=== PATIENT | male | born 1955 | race Caucasian/White ===

== ENCOUNTER → 2018-03-18 10:00 | Outpatient (CLI) | payer OTHER, SELFPAY ==
--- NOTE | 2018-03-18 10:02 | DI.CT.S_ITS ---
PROCEDURE: CT CHEST W CON INDICATIONS: 62-year-old male with asbestos exposure and pleural plaques. TECHNIQUE: After the administration of intravenous contrast, 5 mm thick sections acquired from the pulmonary apices to the posterior costophrenic angles. 7 mm thick coronal and sagittal MIP reformats were acquired. For radiation dose reduction, the following was used: automated exposure control, adjustment of mA and/or kV according to patient size. COMPARISON: [facility], CT, ABDOMEN/PELVIS WITH CONTRAST, 02/03/2018, 11:07. [facility], CR, CHEST 2 VIEW, 10/29/2010, 11:56. [facility], CR, CHEST 2 VIEW, 11/05/2009, 9:56. FINDINGS: Image quality: Excellent. Lungs and pleura: No acute air space opacities. No lung nodules or masses. No pleural effusions or pneumothorax. Bilateral pleural plaques are noted, with patchy internal calcifications. Central and peripheral airways are patent and normal in caliber. Mediastinum: Heart size is normal. No pericardial effusion. No mediastinal or hilar adenopathy by size criteria. Thoracic aorta and central pulmonary arteries are normal in size. Esophagus is normal in caliber, with a small hiatal hernia. Bones and chest wall: On sagittal reformatted images, multiple asymmetric geographic lucent lesions involve the right scapular body. Subacute incompletely healed fractures involve the lateral right fifth through eighth ribs, as well as the posterior right ninth rib. Nonacute lateral left seventh and eighth rib fractures are also present. No vertebral body compression fractures. No axillary or supraclavicular adenopathy by size criteria. Thyroid gland is normal in size. Abdomen: Visualized upper abdominal solid organs appear normal, status post cholecystectomy. Upper abdominal bowel loops are normal in caliber. IMPRESSION: 1. Bilateral partially calcified pleural plaques indicate remote asbestos exposure. No findings to suggest bronchogenic neoplasm or mesothelioma at this time. 2. Subacute incompletely healed fractures of the right fifth through ninth ribs. Nonacute healed fractures of the left seventh and eighth ribs. 3. Multiple geographic lucent lesions involve the right scapular body are of uncertain etiology, and may represent sequelae of remote scapular fracture, or atypical lytic metastases in the setting of known prostate carcinoma. Recommend correlation with PSA level, and consider whole body bone scan if there is clinical concern for osseous metastases. Dictated by: Villa Cotto M.D. on 03/18/2018 at 11:37 Approved by: Villa Cotto M.D. on 03/18/2018 at 11:50
== END ==
PROVIDERS: Family Provider Family Medicine; PCP Family Medicine; Visit Provider Family Medicine
DX: J92.0 Pleural plaque with presence of asbestos (principal); S22.41XD Multiple fractures of ribs, right side, subsequent encounter for fracture with routine healing
CPT/HCPCS: 71260; Q9967

== ENCOUNTER → 2018-06-02 09:05 | Outpatient (CLI) | payer OTHER, SELFPAY ==
[2018-06-02 10:50] LABS: Hemoglobin A1C% w Est Avg Glu 7.8 % (4.0-6.0)
[2018-06-02 11:43] LABS: Prostate Specific Antigen < 0.064 ng/mL (0.10-4.00)
== END ==
PROVIDERS: Family Provider Family Medicine; PCP Family Medicine; Visit Provider Physician Assistant
DX: C61 Malignant neoplasm of prostate (principal); E10.9 Type 1 diabetes mellitus without complications
CPT/HCPCS: 36415; 83036; 84153

== ENCOUNTER → 2018-09-01 07:50 | Outpatient (CLI) | payer OTHER, SELFPAY ==
[2018-09-01 10:30] LABS: Prostate Specific Antigen < 0.064 ng/mL (0.10-4.00)
== END ==
PROVIDERS: Family Provider Family Medicine; PCP Family Medicine; Visit Provider Student in an Organized Health Care Education/Training Program
DX: C61 Malignant neoplasm of prostate (principal)
CPT/HCPCS: 36415; 84153

== ENCOUNTER → 2018-09-15 07:29 | Outpatient (CLI) | payer OTHER, SELFPAY ==
[2018-09-15 08:38] LABS: Add Manual Diff / Slide Review NO; Basophils Percent Auto 0.4 % (0-2); Eosinophils Percent Auto 4.6 % (2-4); Hematocrit 45.4 % (41-53); Hemoglobin 15.5 g/dL (13.5-17.5); Lymphocytes Percent Auto 26.8 % (25-40); Mean Corpuscular HGB Conc 34.1 % (30-36); Mean Corpuscular Hemoglobin 29.9 PG (26-34); Mean Corpuscular Volume 87.7 fL (80-100); Monocytes Percent Auto 7.4 % (3-14); Neutrophils Absolute Auto 5200 /uL (3000-5900); Neutrophils Percent Auto 60.8 % (50-75); Platelet Count 224 X10^3/uL (150-400); Red Blood Cell Count 5.18 X10^6/uL (4.5-5.9); Red Cell Distribution Width 13.6 % (11.6-14.8); White Blood Cell Count 8.5 X10^3/uL (4.5-11.0)
[2018-09-15 08:59] LABS: Alanine Aminotransferase 43 IU/L (21-72); Albumin 4.4 g/dL (3.5-5.0); Albumin Globulin Ratio 1.5 (1.0-2.8); Alkaline Phosphatase 92 U/L (38-126); Aspartate Aminotransferase 30 IU/L (17-59); BUN Creatinine Ratio 19.2 (6-22); Bilirubin Total 0.7 mg/dL (0.2-1.3); Blood Urea Nitrogen 25 mg/dL (9-20); Calcium 9.3 mg/dL (8.4-10.2); Carbon Dioxide 24 mmol/L (22-32); Chloride 105 mmol/L (98-107); Cholesterol 139 mg/dL (140-199); Estimated Glomerular Filt Rate 55.6 mL/min (>60); Glucose 121 mg/dL (80-110); HDL Cholesterol 31 mg/dL (40-60); HEMOLYSIS < 15 (0-50); LDL Cholesterol Calculated 69 mg/dL (<100); Potassium 4.3 mmol/L (3.4-5.1); Sodium 144 mmol/L (137-145); Total Protein 7.4 g/dL (6.3-8.2); Triglycerides 193 mg/dL (35-150)
[2018-09-15 09:03] LABS: Hemoglobin A1C% w Est Avg Glu 9.2 % (4.0-6.0)
[2018-09-15 09:30] LABS: TSH w/ Reflex to FT4 2.66 uIU/mL (0.47-4.68)
[2018-09-15 10:08] LABS: Microalbumi Creatinin Ratio Ur 989.6 ug/mg CR (<30); Microalbumin Urine Random 86.1 mg/dL (0-1.6)
== END ==
PROVIDERS: PCP Family Medicine; Visit Provider Family Medicine
DX: E10.9 Type 1 diabetes mellitus without complications (principal); E78.5 Hyperlipidemia, unspecified; I10 Essential (primary) hypertension; Z00.00 Encounter for general adult medical examination without abnormal findings
CPT/HCPCS: 36415; 80053; 80061; 82043; 82570; 83036; 84443; 85025

== ENCOUNTER → 2018-11-29 09:32 | Outpatient (CLI) | payer OTHER, SELFPAY ==
[2018-11-29 11:36] LABS: Prostate Specific Antigen < 0.064 ng/mL (0.10-4.00)
== END ==
PROVIDERS: PCP Family Medicine; Visit Provider Student in an Organized Health Care Education/Training Program
DX: C61 Malignant neoplasm of prostate (principal)
CPT/HCPCS: 36415; 84153

== ENCOUNTER → 2018-12-27 09:04 | Outpatient (CLI) | payer OTHER, SELFPAY ==
[2018-12-27 10:02] LABS: Hemoglobin A1C% w Est Avg Glu 8.8 % (4.0-6.0)
[2018-12-27 10:27] LABS: Creatinine Urine Random 219.1 mg/dL
[2018-12-27 13:54] LABS: Microalbumi Creatinin Ratio Ur 1775.4 ug/mg CR (<30)
== END ==
PROVIDERS: PCP Family Medicine; Visit Provider Family Medicine
DX: E10.9 Type 1 diabetes mellitus without complications (principal); I10 Essential (primary) hypertension
CPT/HCPCS: 36415; 82043; 82570; 83036

== ENCOUNTER → 2019-03-07 09:13 | Outpatient (CLI) | payer OTHER, SELFPAY ==
[2019-03-07 11:54] LABS: Prostate Specific Antigen < 0.064 ng/mL (0.10-4.00)
== END ==
PROVIDERS: Family Provider Family Medicine; PCP Family Medicine; Visit Provider Student in an Organized Health Care Education/Training Program
DX: C61 Malignant neoplasm of prostate (principal); E10.9 Type 1 diabetes mellitus without complications
CPT/HCPCS: 36415; 84153

== ENCOUNTER → 2019-03-18 08:29 | Outpatient (CLI) | payer OTHER, SELFPAY ==
[2019-03-18 10:39] LABS: Hemoglobin A1C% w Est Avg Glu 9.8 % (4.0-6.0)
[2019-03-18 10:51] LABS: BUN Creatinine Ratio 23.3 (6-22); Blood Urea Nitrogen 28 mg/dL (9-20); Calcium 9.5 mg/dL (8.4-10.2); Carbon Dioxide 23 mmol/L (22-32); Chloride 105 mmol/L (98-107); Estimated Glomerular Filt Rate > 60.0 mL/min (>60); Glucose 133 mg/dL (80-110); HEMOLYSIS < 15 (0-50); Potassium 4.7 mmol/L (3.4-5.1); Sodium 141 mmol/L (137-145)
== END ==
PROVIDERS: PCP Family Medicine; Visit Provider Family Medicine
DX: E10.42 Type 1 diabetes mellitus with diabetic polyneuropathy (principal); E10.9 Type 1 diabetes mellitus without complications; I10 Essential (primary) hypertension
CPT/HCPCS: 36415; 80048; 83036

== ENCOUNTER → 2019-06-27 10:52 | Outpatient (CLI) | payer OTHER, SELFPAY ==
[2019-07-20 13:13] LABS: PSA, Total < 0.1
== END ==
PROVIDERS: Family Provider Family Medicine; PCP Family Medicine; Visit Provider Student in an Organized Health Care Education/Training Program
DX: C61 Malignant neoplasm of prostate (principal)
CPT/HCPCS: 36415; 84153; 84154

== ENCOUNTER → 2019-07-08 10:06 | Outpatient (CLI) | payer OTHER, SELFPAY ==
[2019-07-08 10:51] LABS: Hemoglobin A1C% w Est Avg Glu 9.7 % (4.0-6.0)
[2019-07-08 10:53] LABS: BUN Creatinine Ratio 23.8 (6-22); Blood Urea Nitrogen 31 mg/dL (9-20); Calcium 10.6 mg/dL (8.4-10.2); Carbon Dioxide 29 mmol/L (22-32); Chloride 102 mmol/L (98-107); Estimated Glomerular Filt Rate 55.4 mL/min (>60); Glucose 195 mg/dL (80-110); HEMOLYSIS < 15 (0-50); Potassium 5.3 mmol/L (3.4-5.1); Sodium 143 mmol/L (137-145)
[2019-07-08 12:13] LABS: Creatinine Urine Random 374.2 mg/dL
[2019-07-08 16:28] LABS: Microalbumi Creatinin Ratio Ur 3447.3 ug/mg CR (<30)
== END ==
PROVIDERS: PCP Family Medicine; Visit Provider Student in an Organized Health Care Education/Training Program
DX: R31.9 Hematuria, unspecified (principal); E10.9 Type 1 diabetes mellitus without complications
CPT/HCPCS: 36415; 80048; 82043; 82565; 82570; 83036; 84520

== ENCOUNTER → 2019-07-12 10:38 | Outpatient (CLI) | payer OTHER, SELFPAY ==
--- NOTE | 2019-07-12 | DI.CT.S_ITS ---
PROCEDURE: CT ABDOMEN PELVIS WO/W CON INDICATIONS: HEMATURIA TECHNIQUE: Optional 5 mm thick noncontrast images acquired from the diaphragm to the symphysis pubis. After the administration of intravenous contrast, 5 mm thick images acquired from the diaphragm to the symphysis pubis after a 10-minute delay. 2 mm thick coronal and sagittal reformats were then performed of the kidneys and ureters. For radiation dose reduction, the following was used: automated exposure control, adjustment of mA and/or kV according to patient size. COMPARISON: [facility], CT, ABDOMEN/PELVIS WITH CONTRAST, 02/03/2018, 11:07. [facility], CR, CHEST 2 VIEW, 10/29/2010, 11:56. [facility], , CHEST 2 VIEW, 11/05/2009, 9:56. FINDINGS: Image quality: Excellent. Lung bases: Lung bases are clear. Heart size is normal. Extensive pleural plaquing with calcifications is again seen, consistent with prior asbestos related pleural disease Urinary system: Both kidneys are normal in size, without hydronephrosis or nephrolithiasis on pre-contrast images. No perinephric fat stranding. There is normal bilateral renal enhancement. Renal calyces appear normal in morphology when filled with contrast. Opacified portions of both ureters demonstrate normal caliber. Bladder wall thickness is normal. No calcified bladder stones. Other solid organs: Liver is normal in size and enhancement. Gallbladder has been previously resected. Biliary system is non dilated. Pancreas enhances normally. Spleen is normal in size and enhancement. No adrenal nodules. Peritoneum and bowel: Bowel loops demonstrate normal wall thickness and caliber. No free fluid or air. Nodes and vessels: No retroperitoneal or mesenteric adenopathy by size criteria. Aorta and inferior vena cava are normal in size. Abdominal wall: No ventral hernias. Pelvis: No pathologic free pelvic fluid. No left-sided inguinal hernias or adenopathy. There is a small right inguinal bowel containing superior inguinal hernia. No associated evidence of inguinal hernia incarceration or strangulation is present. Bones: No suspicious bony lesions. Stable appearance of a small sclerotic focus left iliac wing from 2018. No vertebral body compression fractures. IMPRESSION: No evidence of interval development of metastatic disease from prostate carcinoma. Small focus of osseous radiodensity at the anterior aspect of the left iliac bone has been stable from initial CT scanning available from 02/03/18. Incidental note is again made of a right sided small inguinal canal hernia, showing no evidence of incarceration or strangulation. Prior cholecystectomy. Extensive pleural plaquing with calcifications indicates likelihood of prior significant asbestos related pleural disease. Dictated by: Timo Yanez M.D. on 07/12/2019 at 15:52 Approved by: Timo Yanez M.D. on 07/12/2019 at 15:59
== END ==
PROVIDERS: PCP Family Medicine; Visit Provider Student in an Organized Health Care Education/Training Program
DX: C61 Malignant neoplasm of prostate (principal); R31.9 Hematuria, unspecified; K40.90 Unilateral inguinal hernia, without obstruction or gangrene, not specified as recurrent; Z90.49 Acquired absence of other specified parts of digestive tract
CPT/HCPCS: 74178; Q9967

== ENCOUNTER 2019-09-26 09:35 | Day surgery (SDC) | payer OTHER, SELFPAY ==
[2019-09-20 14:07] VITALS: BMI 26.7
[2019-09-26] VITALS (8 sets, daily range): BP systolic 114–150; BP diastolic 61–81; PULSE 75–91; RESP 12–16; TEMP 35.7–37.5; O2SAT 81–95; BMI 26.7
[2019-09-26] MEDS: LACTATED RINGERS 1,000 ML 42 ML IV (10:20)
--- NOTE | 2019-09-26 10:31 | PM.PREOP ---
Pre-operative Note Interval Note History & Physical reviewed/Exam performed by Physician: Yes Changes to H&P: Yes H&P completed within 30 days and has changed as indicated here:: See note from 09/14. Glucose this morning is 194. He was given 5 units of Humulin regular IV
[2019-09-26] MEDS: INSULIN REGULAR 100 UNIT/ML 3 ML VIAL IV ×2 (10:37→10:43)
[2019-09-26] MEDS: CEFAZOLIN 2 GM/100 ML FROZ.PIGGY IV (11:00)
--- NOTE | 2019-09-26 11:21 | SUR.OPER ---
Prone on padded OR bed, head in foam head support, gel chest rolls, gel pad under knees, pillow under lower legs, toes free of pressure, arms secured on padded arm boards at <90 degrees abduction. Safety belt at thigh.
--- NOTE | 2019-09-26 11:23 | SUR.OPER ---
Supine on padded OR bed, head on pillow, right arm secured on padded arm board at <90 degrees abduction left arm padded with gel pad and tucked at side, legs uncrossed heels padded with gel pad, safety belt at thigh.
[2019-09-26] MEDS: BUPIVACAINE 0.5% (PF) VIAL 30 ML INJ (11:34)
--- NOTE | 2019-09-26 12:21 | PM.OP.1 ---
Operative Date/Time/Diagnoses Date of procedure: 09/26/19 Time of procedure: 12:21 Pre-op diagnosis: Right inguinal hernia reducible Post-op diagnosis: same (Indirect hernia) Procedure & Clinicians Procedure: Repair with plug and patch technique Same procedure as scheduled: Yes Indications: Symptomatic right inguinal hernia Surgeon: Seun Gilliam Click Yes if Unassisted: Yes Anesthesia Type: General Operative Notes Findings: Indirect hernia Closure Type: primary Estimated Blood Loss (mL): 5 Blood products transfused: none Procedure in detail: The patient was placed supine on the operating room table and underwent general LMA anesthesia. He was prepped and draped in the usual fashion. A transverse incision was made overlying the internal ring and carried down to the level of the external oblique. The external oblique was opened parallel with its fibers through the external ring. The cord structures were elevated. The cremaster was opened proximally and search made for an indirect sac. One was found. It was from the surrounding structures. It was opened and found to have no contents and was suture ligated at the level the deep epigastric vessels using a 2 0 silk suture.. The floor was examined and was found to be weakened but fairly intact. A medium plug was placed in the defect created by the hernia sac. It was tacked into place with 0 Tycron sutures. The cremaster was closed using 3 0 Vicryl.. A patch was placed across the floor and tacked at the pubic tubercle, the posterior lamella of the anterior rectus sheath, the ilioinguinal ligament, and superior lateral to the cord. The opening was modified as necessary to prevent tight constriction of the cord. Sutures of 0 Tycron were used to secure the mesh. The external oblique was closed with a running 3 0 Vicryl. The subcu was closed with interrupted 3 0 Vicryl. The skin was closed with a running 4 0 Vicryl subcuticular stitch and Steri-Strips. Dressing was applied, the patient was awakened, and the patient was taken to the recovery area in good condition. Complications: none Post-operative Condition: stable Disposition: PACU Plan for aftercare: Follow-up in the office
--- NOTE | 2019-09-26 13:08 | SUR.PHASEII ---
Pt stable, denies pain/nausea, no questions after instructions reviewed, questions answered; Pt/ will monitor blood sugars at home and resume treatment as indicated.
== END 2019-09-26 13:13 | disposition home or self-care (01) ==
PROVIDERS: PCP Family Medicine; Visit Provider Specialist
PROC: (CPT 49505; principal; 2019-09-26 10:45)
DX: K40.90 Unilateral inguinal hernia, without obstruction or gangrene, not specified as recurrent (principal); E10.9 Type 1 diabetes mellitus without complications; N18.2 Chronic kidney disease, stage 2 (mild); E78.5 Hyperlipidemia, unspecified; I10 Essential (primary) hypertension
CPT/HCPCS: 49505; C1781; J0690; J2250; J2405; J2704; J3010

== ENCOUNTER → 2019-10-24 08:28 | Outpatient (CLI) | payer OTHER, SELFPAY ==
[2019-10-24 09:00] LABS: Add Manual Diff / Slide Review NO; Basophils Absolute Auto 0 /uL (0-100); Basophils Percent Auto 0.6 % (0-2); Eosinophils Absolute Auto 400 /uL (0-450); Eosinophils Percent Auto 5.1 % (2-4); Hemoglobin 15.5 g/dL (13.5-17.5); Lymphocytes Absolute Auto 2600 /uL (1100-4500); Lymphocytes Percent Auto 33.4 % (25-40); Mean Corpuscular HGB Conc 33.6 % (30-36); Mean Corpuscular Hemoglobin 29.6 PG (26-34); Mean Corpuscular Volume 88.1 fL (80-100); Monocytes Absolute Auto 700 /uL (0-900); Neutrophils Absolute Auto 4000 /uL (1500-7000); Neutrophils Percent Auto 51.9 % (50-75); Platelet Count 194 X10^3/uL (150-400); Red Blood Cell Count 5.22 X10^6/uL (4.5-5.9); Red Cell Distribution Width 14.4 % (11.6-14.8); White Blood Cell Count 7.6 X10^3/uL (4.5-11.0)
[2019-10-24 09:13] LABS: Alanine Aminotransferase 34 IU/L (<50); Albumin 4.6 g/dL (3.5-5.0); Albumin Globulin Ratio 1.4 (1.0-2.8); Alkaline Phosphatase 95 U/L (38-126); Aspartate Aminotransferase 28 IU/L (17-59); BUN Creatinine Ratio 27.7 (6-22); Blood Urea Nitrogen 36 mg/dL (9-20); Calcium 9.6 mg/dL (8.4-10.2); Carbon Dioxide 22 mmol/L (22-32); Chloride 108 mmol/L (98-107); Cholesterol 167 mg/dL (140-199); Estimated Glomerular Filt Rate 55.4 mL/min (>60); Globulin 3.2 g/dL (1.7-4.1); Glucose 201 mg/dL (80-110); HDL Cholesterol 30 mg/dL (40-60); HEMOLYSIS < 15 (0-50); LDL Cholesterol Calculated 93 mg/dL (<100); Potassium 4.8 mmol/L (3.4-5.1); Sodium 141 mmol/L (137-145); Total Protein 7.8 g/dL (6.3-8.2); Triglycerides 220 mg/dL (35-150)
[2019-10-24 09:43] LABS: Hemoglobin A1C% w Est Avg Glu 8.1 % (4.0-6.0)
[2019-10-24 09:44] LABS: Prostate Specific Antigen Scrn < 0.064 ng/mL (0.1-4.0)
[2019-10-24 10:15] LABS: TSH w/ Reflex to FT4 1.92 uIU/mL (0.47-4.68)
[2019-10-24 11:19] LABS: Creatinine Urine Random 154.1 mg/dL
[2019-10-24 11:52] LABS: Microalbumi Creatinin Ratio Ur 652.8 ug/mg CR (<30); Microalbumin Urine Random 100.6 mg/dL (0-1.6)
== END ==
PROVIDERS: PCP Family Medicine; Visit Provider Family Medicine
DX: C61 Malignant neoplasm of prostate (principal); E10.42 Type 1 diabetes mellitus with diabetic polyneuropathy; E78.5 Hyperlipidemia, unspecified; I10 Essential (primary) hypertension; N18.2 Chronic kidney disease, stage 2 (mild)
CPT/HCPCS: 36415; 80053; 80061; 82043; 82570; 83036; 84443; 85025; G0103

== ENCOUNTER → 2020-01-18 09:12 | Outpatient (CLI) | payer OTHER, SELFPAY ==
[2020-01-18 10:59] LABS: Prostate Specific Antigen < 0.064 ng/mL (0.10-4.00)
== END ==
PROVIDERS: PCP Family Medicine; Referring Provider Student in an Organized Health Care Education/Training Program; Visit Provider Student in an Organized Health Care Education/Training Program
DX: C61 Malignant neoplasm of prostate (principal)
CPT/HCPCS: 36415; 84153

== ENCOUNTER → 2020-11-06 07:38 | Outpatient (CLI) | payer OTHER, SELFPAY ==
[2020-11-06 08:42] LABS: Add Manual Diff / Slide Review NO; Basophils Absolute Auto 0 /uL (0-100); Basophils Percent Auto 0.6 % (0-2); Eosinophils Absolute Auto 500 /uL (0-450); Eosinophils Percent Auto 6.7 % (2-4); Hematocrit 44.5 % (41-53); Hemoglobin 14.9 g/dL (13.5-17.5); Lymphocytes Absolute Auto 2200 /uL (1100-4500); Lymphocytes Percent Auto 30.7 % (25-40); Mean Corpuscular HGB Conc 33.5 % (30-36); Mean Corpuscular Hemoglobin 29.7 PG (26-34); Mean Corpuscular Volume 88.9 fL (80-100); Monocytes Absolute Auto 600 /uL (0-900); Monocytes Percent Auto 8.9 % (3-14); Neutrophils Absolute Auto 3900 /uL (1500-7000); Neutrophils Percent Auto 53.1 % (50-75); Platelet Count 203 X10^3/uL (150-400); Red Blood Cell Count 5.01 X10^6/uL (4.5-5.9); Red Cell Distribution Width 13.3 % (11.6-14.8); White Blood Cell Count 7.3 X10^3/uL (4.5-11.0)
[2020-11-06 09:18] LABS: Alanine Aminotransferase 40 IU/L (<50); Albumin 4.2 g/dL (3.5-5.0); Albumin Globulin Ratio 1.4 (1.0-2.8); Alkaline Phosphatase 89 U/L (38-126); Aspartate Aminotransferase 32 IU/L (17-59); BUN Creatinine Ratio 23.1 (6-22); Bilirubin Total 0.8 mg/dL (0.2-1.3); Blood Urea Nitrogen 28 mg/dL (9-20); Calcium 9.5 mg/dL (8.4-10.2); Carbon Dioxide 23 mmol/L (22-32); Chloride 109 mmol/L (98-107); Cholesterol 145 mg/dL (140-199); Globulin 2.9 g/dL (1.7-4.1); Glucose 111 mg/dL (80-110); HDL Cholesterol 30 mg/dL (40-60); HEMOLYSIS < 15 (0-50); LDL Cholesterol Calculated 72 mg/dL (<100); Potassium 4.3 mmol/L (3.4-5.1); Sodium 139 mmol/L (137-145); Total Protein 7.1 g/dL (6.3-8.2); Triglycerides 216 mg/dL (35-150)
[2020-11-06 09:39] LABS: Thyroid Stimulating Hormone 2.12 uIU/mL (0.47-4.68)
[2020-11-06 09:49] LABS: Prostate Specific Antigen < 0.064 ng/mL (0.10-4.00)
== END ==
PROVIDERS: PCP Family Medicine; Referring Provider Family Medicine; Visit Provider Family Medicine
DX: Z90.79 Acquired absence of other genital organ(s) (principal); E78.5 Hyperlipidemia, unspecified; I10 Essential (primary) hypertension; E10.9 Type 1 diabetes mellitus without complications; N18.2 Chronic kidney disease, stage 2 (mild)
CPT/HCPCS: 36415; 80053; 80061; 84153; 84443; 85025

== ENCOUNTER → 2021-05-14 09:07 | Outpatient (CLI) | payer OTHER, SELFPAY ==
[2021-05-14 10:32] LABS: Creatinine Urine Random 132.9 mg/dL
[2021-05-14 12:14] LABS: Microalbumi Creatinin Ratio Ur 3325.8 ug/mg CR (<30)
== END ==
PROVIDERS: PCP Family Medicine; Referring Provider Family Medicine; Visit Provider Family Medicine
DX: E10.9 Type 1 diabetes mellitus without complications (principal); E78.5 Hyperlipidemia, unspecified; I10 Essential (primary) hypertension
CPT/HCPCS: 36415; 82043; 82570; 83036

== ENCOUNTER → 2021-11-15 07:16 | Outpatient (CLI) | payer OTHER, SELFPAY ==
[2021-11-15 08:53] LABS: Hemoglobin A1C% w Est Avg Glu 10.4 % (4.0-6.0)
[2021-11-15 09:01] LABS: Add Manual Diff / Slide Review NO; Basophils Absolute Auto 0 /uL (0-100); Basophils Percent Auto 0.4 % (0-2); Eosinophils Absolute Auto 500 /uL (0-450); Eosinophils Percent Auto 5.5 % (2-4); Hemoglobin 15.3 g/dL (13.5-17.5); Lymphocytes Absolute Auto 2900 /uL (1100-4500); Lymphocytes Percent Auto 33.4 % (25-40); Mean Corpuscular Volume 88.1 fL (80-100); Monocytes Absolute Auto 500 /uL (0-900); Neutrophils Absolute Auto 4800 /uL (1500-7000); Neutrophils Percent Auto 54.7 % (50-75); Platelet Count 207 X10^3/uL (150-400); Red Cell Distribution Width 13.9 % (11.6-14.8); White Blood Cell Count 8.8 X10^3/uL (4.5-11.0)
[2021-11-15 09:27] LABS: Alanine Aminotransferase 31 IU/L (<50); Albumin 4.1 g/dL (3.5-5.0); Albumin Globulin Ratio 1.4 (1.0-2.8); Alkaline Phosphatase 97 U/L (38-126); Aspartate Aminotransferase 25 IU/L (17-59); BUN Creatinine Ratio 21.4 (6-22); Bilirubin Total 0.8 mg/dL (0.2-1.3); Blood Urea Nitrogen 30 mg/dL (9-20); Calcium 9.5 mg/dL (8.4-10.2); Carbon Dioxide 22 mmol/L (22-32); Chloride 108 mmol/L (98-107); Cholesterol 141 mg/dL (140-199); Estimated Glomerular Filt Rate 50.5 mL/min (>60); Glucose 256 mg/dL (80-110); HDL Cholesterol 33 mg/dL (40-60); HEMOLYSIS < 15 (0-50); LDL Cholesterol Calculated 52 mg/dL (<100); Potassium 4.9 mmol/L (3.4-5.1); Sodium 140 mmol/L (137-145); Total Protein 7.1 g/dL (6.3-8.2); Triglycerides 278 mg/dL (35-150)
[2021-11-15 09:55] LABS: TSH w/ Reflex to FT4 2.72 uIU/mL (0.47-4.68)
== END ==
PROVIDERS: PCP Family Medicine; Referring Provider Family Medicine; Visit Provider Family Medicine
DX: E10.9 Type 1 diabetes mellitus without complications (principal); E78.5 Hyperlipidemia, unspecified; I10 Essential (primary) hypertension; N18.2 Chronic kidney disease, stage 2 (mild)
CPT/HCPCS: 36415; 80053; 80061; 83036; 84443; 85025

== ENCOUNTER → 2022-05-15 07:07 | Outpatient (CLI) | payer OTHER, SELFPAY ==
[2022-05-15 07:31] LABS: Add Manual Diff / Slide Review NO; Basophils Absolute Auto 100 /uL (0-100); Basophils Percent Auto 0.6 % (0-2); Eosinophils Absolute Auto 500 /uL (0-450); Eosinophils Percent Auto 5.9 % (2-4); Hematocrit 43.8 % (41-53); Hemoglobin 14.9 g/dL (13.5-17.5); Lymphocytes Absolute Auto 2700 /uL (1100-4500); Lymphocytes Percent Auto 30.9 % (25-40); Mean Corpuscular HGB Conc 33.9 % (30-36); Mean Corpuscular Hemoglobin 30.1 PG (26-34); Mean Corpuscular Volume 88.8 fL (80-100); Monocytes Absolute Auto 700 /uL (0-900); Monocytes Percent Auto 7.5 % (3-14); Neutrophils Absolute Auto 4800 /uL (1500-7000); Neutrophils Percent Auto 55.1 % (50-75); Platelet Count 223 X10^3/uL (150-400); Red Blood Cell Count 4.93 X10^6/uL (4.5-5.9); Red Cell Distribution Width 13.3 % (11.6-14.8); White Blood Cell Count 8.8 X10^3/uL (4.5-11.0)
[2022-05-15 07:47] LABS: Alanine Aminotransferase 30 IU/L (<50); Albumin 4.2 g/dL (3.5-5.0); Alkaline Phosphatase 93 U/L (38-126); Aspartate Aminotransferase 31 IU/L (17-59); BUN Creatinine Ratio 22.9 (6-22); Bilirubin Total 0.8 mg/dL (0.2-1.3); Blood Urea Nitrogen 30 mg/dL (9-20); Carbon Dioxide 21 mmol/L (22-32); Chloride 110 mmol/L (98-107); Estimated Glomerular Filt Rate 59 mL/min (>60); Glucose 126 mg/dL (80-110); Potassium 4.7 mmol/L (3.4-5.1); Sodium 141 mmol/L (137-145); Total Protein 7.3 g/dL (6.3-8.2)
[2022-05-15 07:48] LABS: Albumin Globulin Ratio 1.4 (1.0-2.8); Cholesterol 154 mg/dL (140-199); Globulin 3.1 g/dL (1.7-4.1); HDL Cholesterol 32 mg/dL (40-60); HEMOLYSIS 18 (0-50); LDL Cholesterol Calculated 70 mg/dL (<100); Triglycerides 260 mg/dL (35-150)
[2022-05-15 08:18] LABS: TSH w/ Reflex to FT4 2.15 uIU/mL (0.47-4.68)
[2022-05-15 09:26] LABS: Creatinine Urine Random 245.6 mg/dL
[2022-05-15 11:41] LABS: Microalbumi Creatinin Ratio Ur 4222.3 ug/mg CR (<30)
[2022-05-15 11:59] LABS: Hemoglobin A1C% w Est Avg Glu 10.6 % (4.0-6.0)
== END ==
PROVIDERS: PCP Family Medicine; Referring Provider Family Medicine; Visit Provider Family Medicine
DX: C61 Malignant neoplasm of prostate (principal); E10.9 Type 1 diabetes mellitus without complications; E78.2 Mixed hyperlipidemia; N18.2 Chronic kidney disease, stage 2 (mild); Z00.00 Encounter for general adult medical examination without abnormal findings; I10 Essential (primary) hypertension
CPT/HCPCS: 36415; 80053; 80061; 82043; 82570; 83036; 84443; 85025

== ENCOUNTER → 2022-06-12 09:08 | Outpatient (CLI) | payer OTHER, SELFPAY ==
[2022-06-12 10:43] LABS: COVID19 -Nasal RAPID Negative (Negative)
--- NOTE | 2022-06-12 14:16 | PM.TREADMILL ---
Cardiac Stress Test Report Referral & Results Date Patient Seen: 06/12/22 Requesting provider: Martin Hidalgo Indication: Fatigue decreased exercise tolerance Rest ECG: Unremarkable Procedure Note: Today following both written and verbal informed consent the patient was exercised according to a standard Glenn protocol patient went for a total of 5 minutes 22 seconds achieving a maximum heart rate of 133 maximum systolic blood pressure of 204. This is approximately 7.0 METS. Exercise was terminated at this point because of inability the patient to keep up due in part leg pain in the calf as well as 2+ dyspnea. Patient was also given Cardiolite through a previously started Hep-Lock IV by the diagnostic imaging staff approximately 1 minute prior to the cessation of exercise. No ST-T segment changes identified Normal heart rate and blood pressure response to exercise Function aerobic impairment rates 25% on the sedentary scale Occasional PAC identified but no other dysrhythmia Impression: No evidence of ischemia based on usual ECG criteria. Limited exercise capacity as above. Given symptoms and legs wonder about peripheral vascular disease in this diabetic patient Please note: Actual ECG tracings can be found in the PACS system.
--- NOTE | 2022-06-12 18:43 | DI.NM.S_ITS ---
DATE OF SERVICE: 06/12/2022 PROCEDURE PERFORMED: Exercise perfusion study. INDICATION: Fatigue, shortness of breath, underlying diabetes mellitus, hypertension and hyperlipidemia. RADIOPHARMACEUTICAL: 24.6 millicurie technetium-99m Myoview IV was injected at stress and 12.1 millicurie technetium-99m Myoview IV was injected at rest. CARDIAC STRESS: The patient underwent exercise perfusion study under the supervision of an attending staff, as per standard protocol. The patient walked on Glenn protocol for 5 minutes and 22 seconds, achieved 88 percent of target heart rate. Baseline blood pressure 134/78 mmHg. Peak blood pressure 204/80 mmHg, suggestive of hypertensive blood pressure response. ELSY positive 25 percent on the active scale. Achieved seven METs of workload. Baseline rhythm was sinus. During stress, no convincing ischemic changes seen. No significant sustained arrhythmias seen. Patient had dyspnea, as well as left leg calf pain. RAW DATA: There is increased subdiaphragmatic activity. GATED STUDY: Resting LV ejection fraction 77 and stress LV ejection fraction 84 percent without any obvious wall motion abnormalities. Resting end-diastolic volume 77 mL. TID ratio 0.72, which is within normal limits. Lung/heart ratio 0.35, which is within normal limits. PERFUSION SCAN: Stress supine, resting supine and stress prone images were compared to each other. Stress supine and resting supine images revealed small size, mildly decreased perfusion of basal inferior wall, as well as basal inferoseptum, which got completely resolved during stress prone images, suggestive of tissue attenuation artifact. No convincing ischemia infarction on stress prone images. CONCLUSION: I will call this study a normal myocardial perfusion study with evidence of diaphragmatic tissue attenuation artifact, which got resolved during prone images. Stress prone images revealed normal myocardial perfusion. Diminished exercise tolerance. Normal heart rate response. Hypertensive blood pressure response. Peak blood pressure 204/80 mmHg. Baseline blood pressure 134/78 mmHg. No obvious ischemic changes. No significant sustained arrhythmia. Patient had dyspnea, as well as left leg calf pain. The patient had a perfusion study in September,, at that time also had a similar perfusion defect. No obvious ischemia or infarction. At that time, he was able to walk on Glenn protocol for 6 minutes and 52 seconds. As far as perfusion scan is concerned, this is a low-risk myocardial perfusion scan. Justin Anthony - CARLOS/sha doc#: [id number]/job#: [id number] dd: 06/12/2022 17:22:00 dt: 06/12/2022 18:13:00 DICTATING MD/COPIES TO: Daisy Sneed MD COPIES MNE: JAMES;
== END ==
PROVIDERS: PCP Family Medicine; Referring Provider Family Medicine; Visit Provider Family Medicine
DX: R53.83 Other fatigue (principal); R68.89 Other general symptoms and signs; E10.9 Type 1 diabetes mellitus without complications; Z20.822 Contact with and (suspected) exposure to COVID-19; R06.02 Shortness of breath; I10 Essential (primary) hypertension; E78.5 Hyperlipidemia, unspecified
CPT/HCPCS: 78452; 87635; 93016; 93017; 93018; A9502

== ENCOUNTER → 2022-11-20 07:36 | Outpatient (CLI) | payer OTHER, SELFPAY ==
[2022-11-20 08:52] LABS: BUN Creatinine Ratio 19.4 (6-22); Blood Urea Nitrogen 25 mg/dL (9-20); Calcium 9.4 mg/dL (8.4-10.2); Carbon Dioxide 20 mmol/L (22-32); Chloride 106 mmol/L (98-107); Estimated Glomerular Filt Rate > 60 mL/min (>60); Glucose 184 mg/dL (80-110); HEMOLYSIS < 15 (0-50); Potassium 4.5 mmol/L (3.4-5.1); Sodium 138 mmol/L (137-145)
[2022-11-20 09:22] LABS: Hemoglobin A1C% w Est Avg Glu 10.6 % (4.0-6.0)
== END ==
PROVIDERS: PCP Family Medicine; Referring Provider Family Medicine; Visit Provider Family Medicine
DX: E11.9 Type 2 diabetes mellitus without complications (principal)
CPT/HCPCS: 36415; 80048; 83036

== ENCOUNTER 2022-12-30 06:38 | Day surgery (SDC) | payer OTHER, SELFPAY ==
[2022-12-30] VITALS (18 sets, daily range): BP systolic 71–140; BP diastolic 38–76; PULSE 59–105; RESP 12–26; TEMP 36.1–36.3; O2SAT 87–96; BMI 26.4
--- NOTE | 2022-12-30 | PATH_ITS ---
[facility] Accession Number: [id number] No. of containers..03 Tissue . 01 Material submitted: . PART A: sigmoid colon - SIGMOID POLYP X 2 PART B: colon - TRANSVERSE 100CM POLYP PART C: colon - ASCENDING COLON POLYP . 01 Diagnosis: A. Sigmoid Colon, Polyp x2, Biopsies: Tubular adenomas. . B. Transverse Colon, Polyp 100 cm, Biopsy: Tubular adenoma. . C. Ascending Colon Polyp, Biopsy: Tubular adenoma. MRV 01/05/2023 1440 Local . 01 Electronically signed: . Gabrielle Leo MD, Pathologist NPI- [id number] . 01 Gross description: . Part A: SIGMOID POLYP X 2: Received in formalin are 2 fragment(s) of peralta, soft tissue measuring 0.3 x 0.3 x 0.2 cm to 0.6 x 0.5 x 0.4 cm submitted entirely in 1 cassette(s) Part B: TRANSVERSE 100CM POLYP: Received in formalin are 2 fragment(s) of peralta, soft tissue measuring 0.4 x 0.3 x 0.3 cm to 0.6 x 0.6 x 0.4 cm submitted entirely in 1 cassette(s) Part C: ASCENDING COLON POLYP: Received in formalin is 1 fragment(s) of peralta, soft tissue measuring 0.8 x 0.6 x 0.4 cm submitted entirely in 1 cassette(s) /CHECO 12/31/2022 2258 Local . 01 Pathologist provided ICD-10: D12.2, D12.3, D12.5 . 01 CPT . 995265, [id number], [id number] Specimen Comment: A courtesy copy of this report has been sent to [phone] Performed at: [address] [facility] [address], [place], [place] [id number] MD Giancarlo Ortega MD Phone: [phone]
[2022-12-30] MEDS: LACTATED RINGERS 1,000 ML 200 ML IV ×2 (07:27→08:37)
--- NOTE | 2022-12-30 07:50 | PM.HP.1 ---
History of Present Illness History of Present Illness Date Patient Seen: 12/30/22 Time Patient Seen: 07:50 Chief complaint: Colonoscopy Narrative: The patient presents for colorectal screening. Previously normal colonoscopy 10-15 years ago. No personal or family history of colon cancer. On further history denies any recent gastrointestinal symptoms. No nausea, vomiting, abdominal pain, loss of appetite, unexplained weight loss, change in bowel habits, or blood per rectum. Patient History Medical History Asbestos exposure Asbestos-induced pleural plaque (~03/2018) Chicken pox Chronic kidney disease, stage 2 (mild) Colon polyps (2009) Diabetes Diabetic polyneuropathy associated with type 1 diabetes mellitus (12/23/17) Dupuytren's contracture Essential hypertension Hepatitis C (2001) Hyperlipidemia Measles Mumps Prostate cancer (01/2018) Proteinuria Radiolucent lesion of bone (~03/2018) Type 1 diabetes mellitus (1993) Surgical History Anesthesia History of colonoscopy with polypectomy (03/23/17) History of hand surgery History of hand surgery History of hand surgery History of knee surgery History of knee surgery History of robot-assisted laparoscopic radical prostatectomy (04/27/18) Status post cholecystectomy Status post hernia repair (10/2012) Status post prostatectomy Family & Social History Family History Brother Age: 71 Diabetes mellitus Brother Age: 66 Diabetes mellitus Father Diabetes mellitus Lipids abnormal Cancer Hypertension Stroke Grandfather No problems noted. Grandmother No problems noted. Mother No problems noted. Grandfather No problems noted. Grandmother No problems noted. Social History: household members spouse Tobacco & Substance use: Tobacco type cigarettes,cigars Smoking Status Former smoker alcohol intake never alcohol intake frequency holiday/special occasion Substance Use Type marijuana Meds Home Medications and Allergies Home Medications Medication Instructions Recorded Confirmed Type Fish Oil (#OMEGA-3 FISH OIL) 3,600 mg PO QDAY ##0 07/22/11 11/27/22 History Disabled Parking Permit See Rx Instructions .Route 03/23/18 11/27/22 Rx .COMPLEX #1 ea Glucose: Test Strips str TID ##100 09/16/18 11/27/22 Rx aspirin 81 mg tablet,delayed 81 mg PO DAILY 09/14/19 12/30/22 History release (Adult Aspirin Regimen) insulin lispro 100 unit/mL See Rx Instructions .Route 01/27/22 12/30/22 Rx subcutaneous solution (Humalog .COMPLEX #20 mL U-100 Insulin) insulin glargine 100 unit/mL (3 See Rx Instructions .Route 05/05/22 12/30/22 Rx mL) subcutaneous pen (Lantus .COMPLEX #45 mL Solostar U-100 Insulin) metformin 1,000 mg tablet See Rx Instructions .Route 05/05/22 12/30/22 Rx .COMPLEX #180 tabs blood sugar diagnostic (OneTouch #100 strips 09/12/22 11/27/22 Rx Ultra Test strips) pen needle, diabetic 31 gauge x #100 ea 09/16/22 11/27/22 Rx 1/4 (TRUEplus Pen Needle) insulin syringe-needle U-100 0.3 #100 ea 11/27/22 Rx mL 31 gauge x 15/64 (BD Veo Insulin Syringe Ultra-Fine) lisinopril 40 mg tablet See Rx Instructions .Route 12/03/22 12/30/22 Rx .COMPLEX #90 tabs simvastatin 40 mg tablet See Rx Instructions .Route 12/03/22 12/30/22 Rx .COMPLEX #90 tabs Allergies Allergy/AdvReac Type Severity Reaction Status Date / Time No Known Drug Allergies Allergy Verified 12/30/22 07:04 Exam Vital Signs (past 8 hours): - 12/30/22 07:15 Temperature 97.3 F L Pulse Rate 105 H Respiratory Rate 12 Blood Pressure 140/76 Pulse Oximetry 94 Oxygen Delivery Method Room Air Oxygen Delivery Method Room Air Narrative Exam Narrative: General adult man alert oriented no acute distress Abdomen soft nontender nondistended Assessment & Plan Assessment & Plan narrative: The patient requires colorectal screening and colonoscopy is recommended. Technical details were discussed. Risks, benefits, alternatives explained. Risks including but not limited to myocardial infarction, aspiration, bleeding, pain, missed lesion, incomplete examination, need for further radiographic studies, colonic perforation, and need for major abdominal surgery were discussed. All questions were answered to their satisfaction, and they are in agreement with this plan. Time Spent With Patient Critical Care time: I spent a total of [] minutes of critical care time on this patient's care today; this time is exclusive of procedural time.
--- NOTE | 2022-12-30 07:52 | P.OP.COLON_ITS ---
Operative Date/Time/Diagnoses Date of procedure: 12/30/22 Time of procedure: 07:52 Pre-op diagnosis: Colorectal screening Post-op diagnosis: other (Colonic polyps x4) Procedure & Clinicians Study performed: Colonoscopy Same procedure as scheduled: Yes Indications: Colorectal screening Surgeon: Marc Vega Procedure Notes Procedure in detail: The history and physical was performed/updated and the patient is ASA class is 2. The procedure was discussed in detail with the patient. Potential risks complications including infection, bleeding, missed diagnosis, perforation, need for surgery, and were explained. Their questions were answered and informed consent was obtained. Patient was brought to the procedure room and placed standard monitoring equipment. The patient's vital signs were monitored continuously throughout the entire procedure. Prior to starting time-out was performed. The patient was placed in the left lateral recumbent position. Procedural sedation was administered by anesthesia. Examination began with a thorough inspection of the perianal area there was no evidence of fissures, fistulae, external hemorrhoids or cutaneous malignancy. The colonoscopy scope was then placed into the anal canal and was advanced to the cecum, which was identified by the ileocecal valve, the appendiceal orifice and the confluence of the taenia. The scope was then slowly withdrawn examining colon thoroughly in all directions, irrigating it of any residual stool. Within the ascending colon there was a 8 mm polyp which was removed with cold snare. Within the transverse colon at 100 cm from the anal verge there was a less than 1 cm polyp removed with cold snare. Within the sigmoid colon there were 2 polyps 1 was approximately 1 cm and flat. Citlaly ink was used to elevate the polyp and then it was taken with cold snare. There was a 2nd sigmoid polyp, smaller approximately 3 mm polyp which was removed with cold snare. The patient tolerated the procedure well. They will be discharged once criteria are met. The prep was of good/excellent quality. The withdrawl time was * minutes. Specimen(s): other (Sigmoid colonic polyps x2, transverse polyp, ascending colo malik polyp) Impression: Colonic polyps x4 Post-procedure Recommendations: High fiber diet Plan for aftercare: Follow-up is dependent on pathology findings Disposition: same day surgery
[2022-12-30] MEDS: ePHEDrine 50 MG/ML VIAL 10 MG IV (08:56)
--- NOTE | 2022-12-30 08:59 | SUR.PHASEI ---
Patient continues to have hypotension after 1300 mls of LR. Asymptomatic; notified MAILROOM COORDINATOR. Orders received for Ephedrin 10 mg IV now and to repeat BP.
--- NOTE | 2022-12-30 09:39 | SUR.PHASEII ---
Patient sitting up drinking water without difficulty; no dizziness, no nausea; abdomen soft and non-distended. All discharge paperwork reviewed with patient.
== END 2022-12-30 09:40 | disposition home or self-care (01) ==
PROVIDERS: PCP Family Medicine; Referring Provider Surgery; Visit Provider Surgery
PROC: 0DJD8ZZ Inspection of Lower Intestinal Tract, Via Natural or Artificial Opening Endoscopic (ICD-10-PCS; CPT 45378; principal; 2022-12-30 07:45)
DX: Z12.11 Encounter for screening for malignant neoplasm of colon (principal); Z86.010 Personal history of colon polyps; D12.5 Benign neoplasm of sigmoid colon; D12.3 Benign neoplasm of transverse colon; D12.2 Benign neoplasm of ascending colon
CPT/HCPCS: 45385; 45381; 82962; J2704

== ENCOUNTER → 2023-05-18 07:08 | Outpatient (CLI) | payer OTHER, SELFPAY ==
[2023-05-18 08:02] LABS: Add Manual Diff / Slide Review NO; Basophils Absolute Auto 0 /uL (0-100); Basophils Percent Auto 0.6 % (0-2); Eosinophils Absolute Auto 600 /uL (0-450); Hematocrit 45.4 % (41-53); Hemoglobin 15.5 g/dL (13.5-17.5); Lymphocytes Absolute Auto 2400 /uL (1100-4500); Lymphocytes Percent Auto 29.8 % (25-40); Mean Corpuscular HGB Conc 34.2 % (30-36); Mean Corpuscular Volume 87.7 fL (80-100); Monocytes Absolute Auto 600 /uL (0-900); Monocytes Percent Auto 7.8 % (3-14); Neutrophils Absolute Auto 4400 /uL (1500-7000); Neutrophils Percent Auto 54.8 % (50-75); Platelet Count 210 X10^3/uL (150-400); Red Blood Cell Count 5.17 X10^6/uL (4.5-5.9); Red Cell Distribution Width 13.7 % (11.6-14.8)
[2023-05-18 08:24] LABS: Alanine Aminotransferase 33 IU/L (<50); Albumin 3.9 g/dL (3.5-5.0); Albumin Globulin Ratio 1.3 (1.0-2.8); Alkaline Phosphatase 111 U/L (38-126); Aspartate Aminotransferase 31 IU/L (17-59); Bilirubin Total 0.9 mg/dL (0.2-1.3); Blood Urea Nitrogen 26 mg/dL (9-20); Calcium 9.1 mg/dL (8.4-10.2); Carbon Dioxide 26 mmol/L (22-32); Chloride 107 mmol/L (98-107); Cholesterol 155 mg/dL (140-199); Estimated Glomerular Filt Rate 59 mL/min (>60); Globulin 2.9 g/dL (1.7-4.1); Glucose 124 mg/dL (80-110); HDL Cholesterol 35 mg/dL (40-60); HEMOLYSIS < 15 (0-50); LDL Cholesterol Calculated 55 mg/dL (<100); Potassium 4.4 mmol/L (3.4-5.1); Sodium 139 mmol/L (137-145); Total Protein 6.8 g/dL (6.3-8.2); Triglycerides 327 mg/dL (35-150)
[2023-05-19 07:09] LABS: x Labcorp Estim. Avg Glu (eAG) 255 mg/dL (.); x Labcorp Hemoglobin A1c 10.5 % (4.8-5.6)
== END ==
PROVIDERS: PCP Family Medicine; Referring Provider Family Medicine; Visit Provider Family Medicine
DX: N18.2 Chronic kidney disease, stage 2 (mild) (principal); E11.9 Type 2 diabetes mellitus without complications
CPT/HCPCS: 80053; 80061; 83036; 85025

== ENCOUNTER → 2023-11-23 07:30 | Outpatient (CLI) | payer OTHER, SELFPAY ==
[2023-11-23 08:17] LABS: Add Manual Diff / Slide Review NO; Basophils Absolute Auto 100 /uL (0-100); Basophils Percent Auto 0.6 % (0-2); Eosinophils Absolute Auto 500 /uL (0-450); Eosinophils Percent Auto 5.1 % (2-4); Hematocrit 46.4 % (41-53); Hemoglobin 15.6 g/dL (13.5-17.5); Lymphocytes Absolute Auto 2800 /uL (1100-4500); Lymphocytes Percent Auto 31.4 % (25-40); Mean Corpuscular HGB Conc 33.6 % (30-36); Mean Corpuscular Hemoglobin 29.9 PG (26-34); Monocytes Absolute Auto 600 /uL (0-900); Monocytes Percent Auto 6.7 % (3-14); Neutrophils Absolute Auto 5100 /uL (1500-7000); Neutrophils Percent Auto 56.2 % (50-75); Platelet Count 241 X10^3/uL (150-400); Red Blood Cell Count 5.22 X10^6/uL (4.5-5.9); Red Cell Distribution Width 13.7 % (11.6-14.8)
[2023-11-23 08:26] LABS: Hemoglobin A1C% w Est Avg Glu 9.7 % (4.0-6.0)
[2023-11-23 08:40] LABS: Alanine Aminotransferase 28 IU/L (<50); Albumin Globulin Ratio 1.3 (1.0-2.8); Alkaline Phosphatase 103 U/L (38-126); Aspartate Aminotransferase 27 IU/L (17-59); BUN Creatinine Ratio 17.4 (6-22); Bilirubin Total 1.2 mg/dL (0.2-1.3); Blood Urea Nitrogen 20 mg/dL (9-20); Calcium 9.6 mg/dL (8.4-10.2); Carbon Dioxide 27 mmol/L (22-32); Chloride 103 mmol/L (98-107); Cholesterol 140 mg/dL (140-199); Estimated Glomerular Filt Rate > 60 mL/min (>60); Globulin 3.2 g/dL (1.7-4.1); Glucose 156 mg/dL (80-110); HDL Cholesterol 31 mg/dL (40-60); HEMOLYSIS < 15 (0-50); LDL Cholesterol Calculated 51 mg/dL (<100); Potassium 4.4 mmol/L (3.4-5.1); Sodium 138 mmol/L (137-145); Total Protein 7.2 g/dL (6.3-8.2); Triglycerides 292 mg/dL (35-150)
[2023-11-23 09:10] LABS: Prostate Specific Antigen Scrn 0.064 ng/mL (0.1-4.0)
[2023-11-23 09:11] LABS: TSH w/ Reflex to FT4 2.68 uIU/mL (0.47-4.68)
[2023-11-23 09:37] LABS: Creatinine Urine Random 273.2 mg/dL
[2023-11-23 10:24] LABS: Microalbumi Creatinin Ratio Ur 10391.6 ug/mg CR (<30)
== END ==
PROVIDERS: PCP Family Medicine; Referring Provider Family Medicine; Visit Provider Family Medicine
DX: Z12.5 Encounter for screening for malignant neoplasm of prostate (principal); E78.2 Mixed hyperlipidemia; I10 Essential (primary) hypertension; E10.40 Type 1 diabetes mellitus with diabetic neuropathy, unspecified
CPT/HCPCS: 36415; 80053; 80061; 82043; 82570; 83036; 84443; 85025; G0103

== ENCOUNTER → 2023-12-07 11:43 | Outpatient (CLI) | payer OTHER, SELFPAY ==
[2023-12-07 12:46] LABS: Influenza A - CEPHEID Flu A NEGATIVE (NEGATIVE); Influenza B - CEPHEID Flu B NEGATIVE (NEGATIVE); Respiratory Syncytial Virus Negative (Negative)
[2023-12-07 13:09] LABS: COVID-19 CEPHEID 4-PLEX PCR POSITIVE (Negative)
== END ==
PROVIDERS: PCP Family Medicine; Visit Provider Family Medicine
DX: R53.83 Other fatigue (principal); R05.9 Cough, unspecified
CPT/HCPCS: 0241U

== ENCOUNTER → 2023-12-07 11:54 | Outpatient (CLI) | payer OTHER, SELFPAY ==
--- NOTE | 2023-12-07 11:55 | DI.RAD.S_ITS ---
PROCEDURE: XR CHEST 2V INDICATIONS: cough TECHNIQUE: 2 views of the chest were acquired. COMPARISON: [facility], , CHEST 2 VIEW, 10/29/2010, 11:56. FINDINGS: Surgical changes and devices: None. Lungs and pleura: Patchy left-sided thick pulmonary infiltrate present. No pleural effusion Mediastinum: Mediastinal contours are normal. Heart size is normal. Bones and chest wall: No suspicious bony abnormalities. Soft tissues appear unremarkable. IMPRESSION: Left-sided pulmonary infiltrate consistent with pneumonia Approved by: Tacho Ga M.D. on 12/07/2023 at 19:32
[2023-12-07 13:02] LABS: Add Manual Diff / Slide Review NO; Basophils Absolute Auto 0 /uL (0-100); Basophils Percent Auto 0.2 % (0-2); Eosinophils Absolute Auto 0 /uL (0-450); Eosinophils Percent Auto 0.3 % (2-4); Hematocrit 46.9 % (41-53); Hemoglobin 15.8 g/dL (13.5-17.5); Lymphocytes Absolute Auto 800 /uL (1100-4500); Lymphocytes Percent Auto 9.4 % (25-40); Mean Corpuscular HGB Conc 33.7 % (30-36); Mean Corpuscular Hemoglobin 29.8 PG (26-34); Mean Corpuscular Volume 88.4 fL (80-100); Monocytes Absolute Auto 700 /uL (0-900); Neutrophils Absolute Auto 6700 /uL (1500-7000); Neutrophils Percent Auto 81.1 % (50-75); Platelet Count 268 X10^3/uL (150-400); Red Blood Cell Count 5.31 X10^6/uL (4.5-5.9); Red Cell Distribution Width 13.7 % (11.6-14.8); White Blood Cell Count 8.2 X10^3/uL (4.5-11.0)
[2023-12-07 13:22] LABS: Alanine Aminotransferase 41 IU/L (<50); Albumin 3.4 g/dL (3.5-5.0); Albumin Globulin Ratio 1.1 (1.0-2.8); Alkaline Phosphatase 103 U/L (38-126); Aspartate Aminotransferase 44 IU/L (17-59); BUN Creatinine Ratio 29.5 (6-22); Bilirubin Total 0.6 mg/dL (0.2-1.3); Blood Urea Nitrogen 51 mg/dL (9-20); Calcium 8.9 mg/dL (8.4-10.2); Carbon Dioxide 21 mmol/L (22-32); Chloride 100 mmol/L (98-107); Estimated Glomerular Filt Rate 42 mL/min (>60); Globulin 3.1 g/dL (1.7-4.1); Glucose 194 mg/dL (80-110); HEMOLYSIS < 15 (0-50); Potassium 4.9 mmol/L (3.4-5.1); Sodium 132 mmol/L (137-145); Total Protein 6.5 g/dL (6.3-8.2)
== END ==
PROVIDERS: PCP Family Medicine; Referring Provider Family Medicine; Visit Provider Family Medicine
DX: R05.9 Cough, unspecified (principal); R53.83 Other fatigue
CPT/HCPCS: 0241U; 36415; 71046; 80053; 85025

== ENCOUNTER → 2023-12-14 09:57 | Outpatient (CLI) | payer OTHER, SELFPAY ==
[2023-12-14 10:47] LABS: BUN Creatinine Ratio 18.6 (6-22); Blood Urea Nitrogen 26 mg/dL (9-20); Calcium 10.1 mg/dL (8.4-10.2); Carbon Dioxide 25 mmol/L (22-32); Chloride 103 mmol/L (98-107); Estimated Glomerular Filt Rate 54 mL/min (>60); Glucose 115 mg/dL (80-110); HEMOLYSIS < 15 (0-50); Potassium 4.7 mmol/L (3.4-5.1); Sodium 138 mmol/L (137-145)
== END ==
PROVIDERS: PCP Family Medicine; Referring Provider Family Medicine; Visit Provider Family Medicine
DX: E86.0 Dehydration (principal); N17.9 Acute kidney failure, unspecified
CPT/HCPCS: 36415; 80048

== ENCOUNTER → 2024-05-11 10:06 | Outpatient (CLI) | payer OTHER, SELFPAY ==
[2024-05-11 10:53] LABS: Add Manual Diff / Slide Review NO; Basophils Absolute Auto 0 /uL (0-100); Basophils Percent Auto 0.3 % (0-2); Eosinophils Absolute Auto 300 /uL (0-450); Eosinophils Percent Auto 2.9 % (2-4); Hematocrit 40.5 % (41-53); Hemoglobin 13.8 g/dL (13.5-17.5); Lymphocytes Absolute Auto 1900 /uL (1100-4500); Lymphocytes Percent Auto 18.7 % (25-40); Mean Corpuscular Hemoglobin 29.5 PG (26-34); Mean Corpuscular Volume 86.6 fL (80-100); Monocytes Absolute Auto 800 /uL (0-900); Monocytes Percent Auto 7.4 % (3-14); Neutrophils Absolute Auto 7100 /uL (1500-7000); Neutrophils Percent Auto 70.7 % (50-75); Platelet Count 282 X10^3/uL (150-400); Red Blood Cell Count 4.67 X10^6/uL (4.5-5.9); Red Cell Distribution Width 14.4 % (11.6-14.8); White Blood Cell Count 10.1 X10^3/uL (4.5-11.0)
[2024-05-11 11:11] LABS: Alanine Aminotransferase 18 IU/L (<50); Albumin 3.5 g/dL (3.5-5.0); Albumin Globulin Ratio 1.2 (1.0-2.8); Alkaline Phosphatase 133 U/L (38-126); Aspartate Aminotransferase 20 IU/L (17-59); Bilirubin Total 0.8 mg/dL (0.2-1.3); Blood Urea Nitrogen 22 mg/dL (9-20); Calcium 9.1 mg/dL (8.4-10.2); Carbon Dioxide 23 mmol/L (22-32); Chloride 107 mmol/L (98-107); Estimated Glomerular Filt Rate > 60 mL/min (>60); Globulin 2.9 g/dL (1.7-4.1); Glucose 267 mg/dL (80-110); HEMOLYSIS < 15 (0-50); Potassium 5.2 mmol/L (3.4-5.1); Sodium 137 mmol/L (137-145); Total Protein 6.4 g/dL (6.3-8.2)
[2024-05-11 11:42] LABS: TSH w/ Reflex to FT4 2.61 uIU/mL (0.47-4.68)
== END ==
LOC: LAB 10:07
PROVIDERS: PCP Family Medicine; Referring Provider Family Medicine; Visit Provider Family Medicine
DX: R63.4 Abnormal weight loss (principal)
CPT/HCPCS: 36415; 80053; 83036; 84443; 85025

== ENCOUNTER → 2024-06-01 08:51 | Outpatient (CLI) | payer OTHER, SELFPAY ==
--- NOTE | 2024-06-01 08:52 | DI.CT.S_ITS ---
PROCEDURE: CT CHEST ABD PEL W CON INDICATIONS: prostate cancer wt loss lytic lesion of scapula weakness TECHNIQUE: After the administration of intravenous contrast, 5 mm thick sections acquired from the lung apices to the symphysis. 5 mm coronal and sagittal reformats were performed, with additional 7 mm MIP reformats through the lungs. For radiation dose reduction, the following was used: automated exposure control, adjustment of mA and/or kV according to patient size. COMPARISON: [facility], CT, CT ABDOMEN PELVIS WO/W CON, 07/12/2019, 10:57. [facility], CT, CT CHEST W CON, 03/18/2018, 10:17. FINDINGS: Image quality: Excellent. CHEST: Lower Neck: No enlarged lymph nodes. Thyroid: No thyroid nodules which require sonographic follow up, per consensus guidelines. Axillae: No enlarged lymph nodes. Chest Wall: Unremarkable. Lungs and Pleura: No pneumothorax or pleural effusions. No consolidation or suspicious nodules. Heart: Heart size is normal. There is a moderate pericardial effusion. Thoracic Vessels: The aorta and pulmonary arteries demonstrate normal size. Mediastinum and Fide: No enlarged lymph nodes. Esophagus: No wall thickening. No significant hiatal hernia. ABDOMEN: Liver: No solid mass. Gallbladder: Removed. Biliary ducts: No biliary dilation. Pancreas: No ductal dilation. Spleen: Size is within normal limits. Adrenal Glands: Generalized nodular thickening can be seen of both adrenal glands. Kidneys and Ureters: No hydronephrosis. No solid mass. No complex renal cystic lesion which requires follow up. Stomach and Bowel: Normal colonic caliber, without significant wall thickening. Peritoneum: No abnormal intraperitoneal fluid. No free air. Ventral Wall: No significant ventral hernia. Abdominal Nodes: No retroperitoneal or mesenteric adenopathy by size criteria. Vessels: Aorta and inferior vena cava are normal in size. PELVIS: Pelvic Organs: Unremarkable. Bladder: No bladder wall thickening, accounting for underdistention. Pelvic Nodes: No enlarged lymph nodes. Miscellaneous: No inguinal hernias are seen. The previously seen right inguinal hernia has resolved. Bones: In this patient with this given history, scrutiny is given to the scapula on each side. There is mild irregularity of the right scapula with lucency. No additional significant bony abnormality is seen. Age-appropriate bony degenerative changes are seen. IMPRESSION: Multiple foci of significant pulmonary metastatic disease are seen, which are new compared to 2018 and represent metastatic disease. Moderate left-sided pleural effusion, which is new from the priors. Underlying areas of pleural thickening can be seen, which are similar to priors and are likely related to prior asbestos exposure. A moderate pericardial effusion is seen. Generalized nodular thickening is seen of both adrenal glands, which is new compared to 2018 and represents additional metastatic disease until proven otherwise. Mild irregularity with lucency seen of the right scapula, which is similar to 2018. Additional findings: Cholecystectomy Resolved right inguinal hernia Dictated by: Alpesh Shaw M.D. on 06/01/2024 at 13:12 Approved by: Alpesh Shaw M.D. on 06/01/2024 at 13:20
== END ==
LOC: CT 08:51
PROVIDERS: PCP Family Medicine; Referring Provider Family Medicine; Visit Provider Family Medicine
DX: C61 Malignant neoplasm of prostate (principal); C78.00 Secondary malignant neoplasm of unspecified lung; C79.72 Secondary malignant neoplasm of left adrenal gland; C79.71 Secondary malignant neoplasm of right adrenal gland; I31.39 Other pericardial effusion (noninflammatory); J90 Pleural effusion, not elsewhere classified; M89.9 Disorder of bone, unspecified; R63.4 Abnormal weight loss; Z77.090 Contact with and (suspected) exposure to asbestos; Z90.49 Acquired absence of other specified parts of digestive tract
CPT/HCPCS: 71260; 74177; Q9967

== ENCOUNTER → 2024-06-02 12:32 | Outpatient (CLI) | payer OTHER, SELFPAY ==
[2024-06-02 14:49] LABS: Cancer Antigen 125 272 U/mL
[2024-06-02 16:57] LABS: Prostate Specific Antigen < 0.064 ng/mL (0.10-4.00)
== END ==
PROVIDERS: PCP Family Medicine; Referring Provider Family Medicine; Visit Provider Family Medicine
DX: D49.1 Neoplasm of unspecified behavior of respiratory system (principal)
CPT/HCPCS: 36415; 82378; 84153; 86301; 86304

== ENCOUNTER 2024-06-13 07:43 | Day surgery (SDC) | payer OTHER, SELFPAY ==
[2024-06-13] VITALS (9 sets, daily range): BP systolic 104–148; BP diastolic 67–85; PULSE 86–116; RESP 14–24; TEMP 36.3–36.9; O2SAT 92–96; BMI 22.3
--- NOTE | 2024-06-13 | PATH_ITS ---
[facility] Accession Number: [id number] No. of containers..01 Tissue . 01 Material submitted: . lung - LEFT LUNG . 01 Diagnosis: LEFT LUNG, CORE BIOPSIES: Benign lung parenchyma with collections of macrophages within intra-alveolar spaces, focal mild chronic inflammation and reactive changes, please see microscopic description. Negative for malignancy. MRV 06/16/2024 1534 Local . 01 Electronically signed: . Kong Fitzpatrick MD, Pathologist NPI- [id number] . 01 Gross description: . LEFT LUNG: Received in formalin are 2 fragment(s) of peralta, soft tissue measuring 0.5 x 0.1 x 0.1 cm to 0.7 x 0.1 x 0.1 cm submitted entirely in 1 cassette(s) /[facility]CO 06/14/2024 0207 Local . 01 Microscopic: . Microscopic examination of the lung tissue reveals dilated intra-alveolar spaces with collections of macrophages (positive for CD68 while negative for the panepithelial marker NIMCO). . There is background focal, mild chronic inflammation, reactive changes, focal mild fibrosis, and honeycomb-like changes. There is no evidence of atypia or malignancy on the submitted biopsy. . To evaluate the collections of intra-alveolar cells, deeper levels and immunostains are performed with the following results: . CD68: Positive on the cells of interest, supporting histiocytic lineage/ macrophages. . NIMCO panepithelial marker: Negative on the cells of interest (arguing against metastatic carcinoma). . Per submitted notes, there is clinically and radiologically high suspicion for malignancy. However, on the submitted biopsy, there are no malignant cells. . As part of ongoing quality assurance qa lab analyst, this case is also reviewed by Dr. Sunitha Guevara, who agrees with the interpretation. . * This test was developed and its performance characteristics determined by [facility]. It has not been cleared or approved by the [place]. Food and Drug Administration. The FDA has determined that such clearance or approval is not necessary. This test is used for clinical purposes. It should not be regarded as investigational or for research. . 01 Pathologist provided ICD-10: R91.8 . 01 CPT . 562148, J13861, C40792 Specimen Comment: A courtesy copy of this report has been sent to [phone] Performed at: [address] [id number] MD Giancarlo Ortega MD Phone: [phone]
--- NOTE | 2024-06-13 03:00 | DI.RAD.S_ITS ---
PROCEDURE: XR CHEST 1V INDICATIONS: post lung biopsy TECHNIQUE: One view of the chest was acquired. COMPARISON: [facility], CR, XR CHEST 2V, 12/07/2023, 12:02. FINDINGS: Surgical changes and devices: None. Lungs and pleura: Large left pleural effusion with adjacent consolidative changes appears similar to prior CT. In the mobile pulmonary metastatic lesions are seen. Mediastinum: Mediastinal silhouettes are obscured by pneumonic infiltrates Bones and chest wall: Visualized bones appear grossly intact. IMPRESSION: 1. No pneumothorax status post left lung biopsy. 2. Large left pleural effusion, adjacent consolidative changes with bilateral diffuse pulmonary metastatic lesions again seen Dictated by: Seun Reyes M.D. on 06/13/2024 at 13:18 Approved by: Seun Reyes M.D. on 06/13/2024 at 13:30
--- NOTE | 2024-06-13 07:44 | DI.CT.S_ITS ---
PROCEDURE: CT BIOPSY LUNG LT Sedation analgesia for 30 minutes. INDICATIONS: mets seen on CT 06/01 TECHNIQUE: The indications, alternatives, benefits, risks, and possible complications of the procedure were communicated to the patient. Informed written consent from the patient was obtained and placed in the chart. Continuous EKG and hemodynamic monitoring was started by trained personnel. The patient was brought to the CT suite and pipe stripper spiral CT imaging was performed with localization grid. The appropriate site for percutaneous access to the biopsy target was marked, was prepped and draped sterilely, and was infused with local anaesthesia. Under CT guidance, a core biopsy trocar and needle set was advanced to the biopsy target, and specimen(s) were obtained. The trocar and needle were then removed, and the patient was sent for post-procedure monitoring. COMPARISON: [facility], CT, CT CHEST ABD PEL W CON, 06/01/2024, 10:22. CT chest 06/01/2024. FINDINGS: Biopsy site: Left upper lung Needle: 17/18 gauge biopsy needle with introducer trocar. Number of passes: 5 Medications: 1% lidocaine for local anaesthesia. IV Fentanyl and Versed for conscious sedation for 30 minutes (see nursing record). Complications: None. FINDINGS: Severe progression of size and number of bilateral pulmonary nodules. Increased size left pleural effusion, now large on the left. Small pericardial effusion again noted. Heart is slightly deviated to the right. IMPRESSION: Successful CT-guided biopsy of left upper lung lesion Dictated by: Seun Reyes M.D. on 06/14/2024 at 10:44 Approved by: Seun Reyes M.D. on 06/14/2024 at 11:10
[2024-06-13 08:56] LABS: Hematocrit 40.1 % (41-53); INR 1.1 (0.9-1.3); Platelet Count 346 X10^3/uL (150-400); Prothrombin Time 12.5 SECONDS (9.4-12.5)
[2024-06-13 08:58] LABS: PTT Partial Thromboplastin Tim 36 SECONDS (25.1-36.5)
[2024-06-13] MEDS: MIDAZOLAM 2 MG/2 ML VIAL IV (09:49)
[2024-06-13] MEDS: fentaNYL 100 MCG/2 ML INJ IV (09:50)
--- NOTE | 2024-06-13 10:20 | SUR.PHASEII ---
Report received from Nancy. CBG 74, PO intake provided. Patient denied pain. Chest bandaid CDI.
--- NOTE | 2024-06-13 13:23 | SUR.PHASEII ---
X-ray reviewed by Dr. Zhou, patient may discharge per MD. Patient denied shortness of breath or pain. No crepitus noted.
== END 2024-06-13 13:26 | disposition home or self-care (01) ==
PROVIDERS: Radiology Diagnostic Radiology; PCP Family Medicine; Referring Provider Family Medicine; Visit Provider Family Medicine
PROC: BB24ZZZ Computerized Tomography (CT Scan) of Bilateral Lungs (ICD-10-PCS; CPT 32408; principal; 2024-06-13 09:00)
DX: R91.8 Other nonspecific abnormal finding of lung field (principal)
CPT/HCPCS: 32408; 71045; 82962; 85014; 85049; 85610; 85730; J2250; J3010